=== PATIENT | male | born 1955 | race Caucasian/White ===

== ENCOUNTER 2024-01-11 17:58 | Emergency (ER) | payer MEDICARE, BC ==
--- NOTE | 2024-01-11 18:25 | ED ---
General Adult HPI - General Source: patient, RN notes reviewed Mode of arrival: wheelchair Limitations: no limitations <Kylee Steele - Last Filed: 01/11/24 18:24> <Susu Steel - Last Filed: 01/13/24 13:44> - General Chief complaint: Back Pain/Injury Stated complaint: Back Pain Time Seen by Provider: 01/11/24 18:10 - History of Present Illness Initial comments: Quick noteis a 68-year-old male who presents the emergency department chief complaint of left-sided hip and back pain over the past month. Patient states the pain was worse on Tuesday where he went for a dresser with his chiropractor. However pain is worsened today. Denies urinary or fecal incontinence or retention. Denies falls or injury. (Kylee Steele) 68-year-old male who presents emergency department with left-sided hip and back pain. States that the pain has been going on intermittently for the past month. He saw his chiropractor earlier in the week and had an adjustment. States that his pain was instantly better. The pain worsened this morning and he was seen once again. States that the chiropractor was able to make his pain slightly better for a few hours however it returned. He does have Bl[place] Graeagle and muscle relaxers at home which he was given after knee surgery but states he did not take any as he wanted to be evaluated first. He states the pain radiates into the right groin. Pain is worse with movement and better with rest. He does admit that he has been golfing recently and slept on a cabin bed for the past 2 nights. He denies any pain, numbness or tingling that goes into his leg. No saddle anesthesia. No bowel or bladder incontinence. No fevers. Denies history of intravenous drug use. He did take some Tylenol which seemed to alleviate his pain somewhat. No other alleviating, precipitating or modifying factors (Susu Steel) - Related Data Previous Rx's Medication Instructions Recorded Cyclobenzaprine [Flexeril] 10 mg PO TID PRN #20 tab 01/11/24 HYDROcodone/APAP 5-325MG [[place] Graeagle 1 tab PO Q4HR PRN #18 tab 01/11/24 5-325] Allergies Allergy/AdvReac Type Severity Reaction Status Date / Time Penicillins AdvReac Unknown Verified 01/11/24 18:21 Tetanus Vaccines and Toxoid AdvReac Unknown Verified 01/11/24 18:21 Review of Systems ROS Other: All systems not noted in ROS Statement are negative. <Kylee Steele - Last Filed: 01/11/24 18:24> ROS Other: All systems not noted in ROS Statement are negative. <Susu Steel Jameson - Last Filed: 01/13/24 13:44> ROS Statement: Those systems with pertinent positive or pertinent negative responses have been documented in the HPI. Past Medical History Past Medical History: Atrial Fibrillation History of Any Multi-Drug Resistant Organisms: None Reported Past Surgical History: Orthopedic Surgery Past Psychological History: No Psychological Hx Reported Smoking Status: Never smoker Past Alcohol Use History: None Reported Past Drug Use History: None Reported <Kylee Steele - Last Filed: 01/11/24 18:24> General Exam Limitations: no limitations <Kylee Steele - Last Filed: 01/11/24 18:24> General appearance: alert, in no apparent distress Head exam: Present: atraumatic, normocephalic, normal inspection Eye exam: Present: normal appearance, PERRL, EOMI. Absent: scleral icterus, conjunctival injection, periorbital swelling ENT exam: Present: normal exam, mucous membranes moist Neck exam: Present: normal inspection. Absent: tenderness, meningismus, lymphadenopathy Respiratory exam: Present: normal lung sounds bilaterally. Absent: respiratory distress, wheezes, rales, rhonchi, stridor Cardiovascular Exam: Present: regular rate, normal rhythm, normal heart sounds. Absent: systolic murmur, diastolic murmur, rubs, gallop, clicks GI/Abdominal exam: Present: soft, normal bowel sounds. Absent: distended, tenderness, guarding, rebound, rigid Extremities exam: Present: normal inspection, full ROM, normal capillary refill. Absent: tenderness, pedal edema, joint swelling, calf tenderness Back exam: Present: other (Patient has some tenderness to palpation of the left flank/left SI joint. He has 5 out of 5 muscle strength in the bilateral lower extremities. 2+ DP and PT pulses. Intact sensation over medial, lateral and dorsal lower extremities.) Neurological exam: Present: alert, oriented X3, CN II-XII intact Psychiatric exam: Present: normal affect, normal mood Skin exam: Present: warm, dry, intact, normal color. Absent: rash <Susu Steel - Last Filed: 01/13/24 13:44> - General Exam Comments Initial Comments: Visual Physical Exam Vital signs reviewed General: Well-appearing, nontoxic, no acute distress. Head: Normocephalic, atraumatic Eyes: PERRLA, EOMI ENT: Airway patent Chest: Nonlabored breathing Skin: No visual rash, normal skin tone Neuro: Alert and oriented 3 Musculoskeletal: No gross abnormalities (Kylee Steele) Course Vital Signs 01/11/24 01/11/24 18:15 22:54 Temperature 97.8 F 97.9 F Pulse Rate 77 70 Respiratory 18 18 Rate Blood Pressure 168/93 155/90 O2 Sat by Pulse 98 98 Oximetry Medical Decision Making <Kylee Steele - Last Filed: 01/11/24 18:24> <Susu Steel - Last Filed: 01/13/24 13:44> - Medical Decision Making I completed the quick note portion of this chart signed Kylee Steele PA-C (Kylee Steele) Was pt. sent in by a medical professional or institution ([facility], [employer], urgent care, hospital, or alf...) When possible be specific @ -No Did you speak to anyone other than the patient for history (EMS, parent, family, police, friend...)? What history was obtained from this source @ -Spoke with the for history Did you review nursing and triage notes (agree or disagree)? Why? @ -I reviewed and agree with nursing and triage notes Were old charts reviewed (outside hosp., previous admission, EMS record, old EKG, old radiological studies, urgent care reports/EKG's, alf records)? Report findings @ -No old charts were reviewed Differential Diagnosis (chest pain, altered mental status, abdominal pain women, abdominal pain men, vaginal bleeding, weakness, fever, dyspnea, syncope, headache, dizziness, GI bleed, back pain, seizure, CVA, palpatations, mental health, musculoskeletal)? @ -Differential Back Pain: Strain, zoster, cauda equina syndrome, epidural abscess, vertebral osteomyelitis, discitis, fracture, subluxation, disc herniation, DJD, spinal stenosis, dissection, AAA, pancreatitis, peptic ulcer disease, pyelonephritis, kidney stone, this is not meant to be an all-inclusive list. EKG interpreted by me (3pts min.). @ -Not done X-rays interpreted by me (1pt min.). @ -Yes and demonstrates no acute fractures. Patient does have some arthritic changes to the lower spine which could explain the patient's pain CT interpreted by me (1pt min.). @ -None done U/S interpreted by me (1pt. min.). @ -None done What testing was considered but not performed or refused? (CT, X-rays, U/S, labs)? Why? @ -MRI considered however not available at this time What meds were considered but not given or refused? Why? @ -IM pain medications as well as muscle relaxers however patient is refusing injection Did you discuss the management of the patient with other professionals (professionals i.e. , PA, DESK PEN SET ASSEMBLER, lab, RT, psych nurse, social worker psychiatric, sample puller, teacher, operations officer, keycase assembler)? Give summary @ -No Was smoking cessation discussed for >3mins.? @ -No Was critical care preformed (if so, how long)? @ -No Were there social determinants of health that impacted care today? How? (Homelessness, low income, unemployed, alcoholism, drug addiction, transportation, low edu. Level, literacy, decrease access to med. care, half-way, rehab)? @ -No Was there de-escalation of care discussed even if they declined (Discuss DNR or withdrawal of care, Hospice)? DNR status @ -No What co-morbidities impacted this encounter? (DM, HTN, Smoking, COPD, CAD, Cancer, CVA, ARF, Chemo, Hep., AIDS, mental health diagnosis, sleep apnea, morbid obesity)? @ -None Was patient admitted / discharged? Hospital course, mention meds given and route, prescriptions, significant lab abnormalities, going to OR and other pertinent info. @ -Upon arrival patient was seen and evaluated in room 30. Thorough history and physical exam was performed. Patient is given a dose of pain medications and muscle relaxer. X-rays are performed of the patient's lumbar spine and left hip. There is concern that the patient's pain may be coming from his hip as it radiates in the groin however x-rays are negative for acute process. Patient does have arthritic changes to the spine. Patient has left lumbar back pain with radiculopathy. At this time recommended heating packs and Lidoderm patches. Patient will be prescribed pain medications and muscle relaxers. He is to alternate taking these. Made very aware that the possibility is respiratory suppression and therefore these medications must not be administered at the same time. Recommend that he use them while not alone at home. He is to follow-up with his primary care doctor. May need an MRI of his lumbar back. No heavy lifting or bending. Return for any new or worsening symptoms. Patient agreeable to this plan he was discharged in stable condition Undiagnosed new problem with uncertain prognosis? @ -No Drug Therapy requiring intensive monitoring for toxicity (Heparin, Nitro, Insulin, Cardizem)? @ -No Were any procedures done? @ -No Diagnosis/symptom? @ -Acute left flank pain, lumbar strain Acute, or Chronic, or Acute on Chronic? @ -Acute Uncomplicated (without systemic symptoms) or Complicated (systemic symptoms)? @ -Complicated Side effects of treatment? @ -No Exacerbation, Progression, or Severe Exacerbation? @ -No Poses a threat to life or bodily function? How? (Chest pain, [place], [place], pneumonia, PE, COPD, DKA, ARF, appy, cholecystitis, CVA, Diverticulitis, Homicidal, Suicidal, threat to staff... and all critical care pts) @ -No (Susu Steel) Disposition <Kylee Steele - Last Filed: 01/11/24 18:24> Is patient prescribed a controlled substance at d/c from ED?: Yes When asked, does pt state using other controlled substances?: No If prescribed controlled substance>3 days was MAPS reviewed?: Prescribed <3 Days If opioid is for acute pain is fill amount 7 days or less?: Yes Time of Disposition: 22:34 <Susu Steel - Last Filed: 01/13/24 13:44> Clinical Impression: Flank pain Disposition: HOME SELF-CARE Condition: Stable Instructions (If sedation given, give patient instructions): Acute Low Back Pain (ED) Additional Instructions: Please purchase Aspercreme patches and place them on the site. Use a heating pad. Rest. No heavy lifting or bending. Follow-up with your primary care doctor. You may benefit from an MRI of your back. Alternate taking the muscle relaxer and pain medication every 2- 4 hours, only as needed for pain. Prescriptions: Cyclobenzaprine [Flexeril] 10 mg PO TID PRN #20 tab PRN Reason: Muscle Spasm HYDROcodone/APAP 5-325MG [[place] 5-325] 1 tab PO Q4HR PRN #18 tab PRN Reason: Severe Breakthrough Pain Referrals: Colten Ibarra MD [Primary Care Provider] - 1-2 days Jay Josue DO [Doctor of Osteopathic Medicine] - 1-2 days
[2024-01-11 19:20] VITALS: RESP 18
[2024-01-11] MEDS: ORPHENADRINE 30 MG/ML 2 ML VIAL IM STA (20:12)
[2024-01-11] MEDS: KETOROLAC 15 MG/ML 1 ML VIAL IM STA (20:13)
[2024-01-11] MEDS: CYCLOBENZAPRINE 10 MG TAB PO STA (20:41)
[2024-01-11] MEDS: HYDROcodone/APAP 5-325MG 1 EACH TAB PO STA (20:41)
--- NOTE | 2024-01-11 22:11 | XR ---
EXAMINATION TYPE: XR lumbosacral spine min 4V DATE OF EXAM: 01/11/2024 8:22 PM CLINICAL INDICATION:Male, 68 years old with history of pain; [facility] COMPARISON: None TECHNIQUE: XR lumbosacral spine min 4V - Frontal, lateral and coned down L5-S1 lateral views of the l umbar spine. Bilateral obliques. FINDINGS: There are 5 lumbar-type vertebral bodies. Mineralization appears within normal limits. No osseous narciso tructive process seen. Vertebral body heights are maintained there is no evidence of compression frac ture. Mild to moderate multilevel degenerative disc disease with disc space narrowing and marginal os teophytosis, greatest at L5-S1 followed by L2-L3. There is likely at least mild to moderate spinal ca nal and neuroforaminal stenoses at L5-S1. No pars defect is seen. Vertebral body alignment appears pr eserved, no significant listhesis or scoliosis. Bowel loops are gaseous and mildly distended, and this partially obscures the lumbar spine. Mild-to-m oderate atherosclerotic calcification of the abdominal aorta. IMPRESSION: 1. No radiographic evidence of acute compression fracture. 2. Mild to moderate multilevel disc degeneration.
--- NOTE | 2024-01-11 22:16 | XR ---
EXAMINATION TYPE: XR Hip LT and AP Pelvis DATE OF EXAM: 01/11/2024 8:22 PM CLINICAL INDICATION:Male, 68 years old with history of pain; [facility] COMPARISON: None. TECHNIQUE: The left hip was examined in the frontal and lateral projections and a AP pelvis. FINDINGS: Osseous mineralization appears appropriate. Pelvis is symmetric and intact. Minimal degenerative arauz ges of the SI joints. Sacrum not well evaluated with the presence of overlying colonic stool and gas. [id number] right and slightly milder left hip arthropathy. No acute fracture or dislocation is seen. Preserved spherical shape of the femoral heads. No acute soft tissue abnormality. Pelvic phleboliths. IMPRESSION: 1. No acute radiographic abnormality of the pelvis or left hip. 2. Mild/moderate degenerative changes.
[2024-01-11] MEDS: LIDOCAINE 4% PATCH TOPICAL ONE (22:48)
[2024-01-11] MEDS: CYCLOBENZAPRINE 10MG STARTER 3 TAB BTL PO STA (22:48)
[2024-01-11 23:19] VITALS: BP 155/90; PULSE 70; TEMP 97.9
== END 2024-01-11 22:55 | disposition home or self-care (01) ==
LOC: EC 17:58
DX: R10.9 Unspecified abdominal pain (principal); Z88.0 Allergy status to penicillin; Z88.7 Allergy status to serum and vaccine
CPT/HCPCS: 72110; 73502; 99283